=== PATIENT | male | born 1950 | race Two or more races ===

== ENCOUNTER 2021-06-18 19:18 | Inpatient (IN) | payer OTHER ==
[~2021-06-18] VITALS: Ht 182.9 cm; Wt 104.8 kg
[2021-06-18] MEDS ORDERED: DEXAMETHASONE 4 MG/ML, 1ML IVPush ONE (20:30)
[2021-06-18] MEDS ORDERED: DEXAMETHASONE 4 MG/ML, 1ML ONE (20:34)
[2021-06-18] MEDS: INSULIN LISPRO 100 UNITS/ML, PEN SQ-INSULIN SCH (21:00)
[2021-06-18] MEDS ORDERED: ONDANSETRON 2MG/ML, 2ML IVPush PRN (21:00)
[2021-06-18] MEDS ORDERED: morphine SULFATE 10 MG/ML, 1ML IVPush PRN (21:00)
[2021-06-18] MEDS ORDERED: KETOROLAC 30 MG/1 ML IV PRN (21:00)
[2021-06-18] MEDS ORDERED: POLYETHYLENE GLYCOL 17 GM PACKET PO PRN (21:00)
[2021-06-18] MEDS ORDERED: PHARMACY MAY ADJ FOR RENAL FX MC PRN (21:00)
[2021-06-18] MEDS ORDERED: MELATONIN 5 MG TABLET PO PRN (21:00)
[2021-06-18] MEDS ORDERED: LABETALOL 5MG/ML, 20ML IVPush PRN (21:00)
--- NOTE | 2021-06-18 22:01 | NUR ---
patient brought water per request
[2021-06-18] MEDS ORDERED: PLEASE ENTER ALLERGIES MC SCH (22:30)
[2021-06-18 22:44] LABS: ALBUMIN 2.5 g/dL (3.4-5.0); ANION GAP 7 mmol/L (5-15); CHLORIDE 107 mmol/L (98-107)
[2021-06-18 22:47] LABS: ALANINE AMINOTRANSFERASE 31 U/L (12-78); ALKALINE PHOSPHATASE 45 U/L (45-117); BILIRUBIN,TOTAL 1.2 mg/dL (0.2-1.0); CREATININE 0.66 mg/dL (0.7-1.3); TOTAL PROTEIN 6.8 g/dL (6.4-8.2)
[2021-06-18] MEDS ORDERED: REMDESIVIR 200 MG in SODIUM CHLORIDE 0.9% 250 ML IVPB ONE (23:00)
--- NOTE | 2021-06-18 23:07 | NUR ---
patients family member called with concerns that patient has nothing to eat yet. Spoke with family and notified them that patient has yet to voice a request for food to RN. Family frustrated with this information and stating that he had been asking RN for food for hours. Patient brought crackers, cereal, and cheese sticks from nourishment room per request. Patient has no other needs at this current moment
[2021-06-18 23:22] VITALS: BP 111/66
[2021-06-18] MEDS: FAMOTIDINE 20 MG TABLET PO SCH (23:46)
[2021-06-18] MEDS: ENOXAPARIN 40 MG/0.4 ML SQ SCH (23:46)
[2021-06-18] MEDS: DEXAMETHASONE 4 MG/ML, 1ML IVPush SCH (23:46)
[2021-06-19 01:28] VITALS: BP 117/64
[2021-06-19] MEDS: DEXAMETHASONE 4 MG/ML, 1ML IVPush SCH ×2 (05:16→11:05)
[2021-06-19 05:25] LABS: BASOPHILS % (AUTO) 0 % (0-1); EOSINOPHILS % (AUTO) 0 % (1-7); LYMPHOCYTES % (AUTO) 16 % (22-44); MEAN CORPUSCULAR HEMOGLOBIN 30.8 pg (27.5-34.5); MEAN CORPUSCULAR HGB CONC 34.6 g/dL (33.2-36.2); MEAN PLATELET VOLUME 9.2 fL (7.4-10.4); MONOCYTES % (AUTO) 8 % (2-9); NEUTROPHILS % (AUTO) 77 % (42-75); PLATELET COUNT 80 x10^3/uL (130-400); RED BLOOD COUNT 4.55 x10^6/uL (4.38-5.82); RED CELL DISTRIBUTION WIDTH 13.4 % (9.4-14.8)
[2021-06-19 05:40] LABS: ANION GAP 7 mmol/L (5-15); CALCIUM 8.4 mg/dL (8.5-10.1); CHLORIDE 108 mmol/L (98-107)
[2021-06-19 05:42] LABS: CREATININE 0.65 mg/dL (0.7-1.3)
[2021-06-19] MEDS ORDERED: TAMSULOSIN 0.4 MG CAP.ER.24H PO SCH (07:00)
[2021-06-19] MEDS: FAMOTIDINE 20 MG TABLET PO SCH ×2 (07:42→21:08)
[2021-06-19] MEDS: INSULIN LISPRO 100 UNITS/ML, PEN SQ-INSULIN SCH ×4 (07:50→21:12)
[2021-06-19 08:13] VITALS: BP 106/46
[2021-06-19 10:18] LABS: ALANINE AMINOTRANSFERASE 28 U/L (12-78); ALBUMIN 2.3 g/dL (3.4-5.0); ANION GAP 8 mmol/L (5-15); CALCIUM 8.4 mg/dL (8.5-10.1); CHLORIDE 107 mmol/L (98-107)
[2021-06-19 10:42] LABS: ALKALINE PHOSPHATASE 42 U/L (45-117); BILIRUBIN,TOTAL 0.9 mg/dL (0.2-1.0); CREATININE 0.69 mg/dL (0.7-1.3); TOTAL PROTEIN 6.4 g/dL (6.4-8.2)
[2021-06-19 13:23] VITALS: BP 112/69
[2021-06-19 20:07] VITALS: BP 100/61
[2021-06-19] MEDS: ENOXAPARIN 40 MG/0.4 ML SQ SCH (21:08)
[2021-06-19] MEDS: REMDESIVIR 100 MG in SODIUM CHLORIDE 0.9% 250 ML IVPB SCH (22:34)
[2021-06-20 01:12] VITALS: BP 81/41
[2021-06-20 05:44] LABS: BASOPHILS % (AUTO) 0 % (0-1); EOSINOPHILS % (AUTO) 0 % (1-7); LYMPHOCYTES % (AUTO) 11 % (22-44); MEAN CORPUSCULAR HEMOGLOBIN 30.9 pg (27.5-34.5); MEAN CORPUSCULAR HGB CONC 34.4 g/dL (33.2-36.2); MEAN PLATELET VOLUME 9.8 fL (7.4-10.4); MONOCYTES % (AUTO) 6 % (2-9); NEUTROPHILS % (AUTO) 83 % (42-75); PLATELET COUNT 86 x10^3/uL (130-400); RED BLOOD COUNT 4.43 x10^6/uL (4.38-5.82); RED CELL DISTRIBUTION WIDTH 13.5 % (9.4-14.8)
[2021-06-20 05:47] LABS: HCT (SEDRATE) 40.2 % (39.2-51.8)
[2021-06-20 05:57] LABS: CHLORIDE 109 mmol/L (98-107)
[2021-06-20 06:10] LABS: ALANINE AMINOTRANSFERASE 25 U/L (12-78); ALBUMIN 2.2 g/dL (3.4-5.0); ALKALINE PHOSPHATASE 40 U/L (45-117); ANION GAP 6 mmol/L (5-15); BILIRUBIN,TOTAL 0.8 mg/dL (0.2-1.0); CALCIUM 8.2 mg/dL (8.5-10.1)
[2021-06-20] MEDS: INSULIN LISPRO 100 UNITS/ML, PEN SQ-INSULIN SCH ×4 (07:00→20:05)
[2021-06-20] MEDS: FAMOTIDINE 20 MG TABLET PO SCH ×2 (07:14→20:06)
[2021-06-20] MEDS: DEXAMETHASONE 4 MG/ML, 1ML IVPush SCH (07:14)
[2021-06-20 07:53] VITALS: BP 100/59
[2021-06-20 13:53] VITALS: BP 114/70
[2021-06-20] MEDS: TAMSULOSIN 0.4 MG CAP.ER.24H PO SCH (20:06)
[2021-06-20] MEDS: ENOXAPARIN 40 MG/0.4 ML SQ SCH (20:06)
[2021-06-20 20:07] VITALS: BP 100/59
[2021-06-20] MEDS: REMDESIVIR 100 MG in SODIUM CHLORIDE 0.9% 250 ML IVPB SCH (22:46)
[2021-06-20 23:43] VITALS: BP 108/66
[2021-06-21 06:02] LABS: ALBUMIN 2.2 g/dL (3.4-5.0); ANION GAP 7 mmol/L (5-15); CALCIUM 8.3 mg/dL (8.5-10.1); CHLORIDE 107 mmol/L (98-107)
[2021-06-21 06:05] LABS: ALANINE AMINOTRANSFERASE 28 U/L (12-78); ALKALINE PHOSPHATASE 49 U/L (45-117); BILIRUBIN,TOTAL 0.9 mg/dL (0.2-1.0); CREATININE 0.59 mg/dL (0.7-1.3); TOTAL PROTEIN 6.1 g/dL (6.4-8.2)
[2021-06-21] MEDS: INSULIN LISPRO 100 UNITS/ML, PEN SQ-INSULIN SCH ×4 (07:00→21:36)
[2021-06-21] MEDS: FAMOTIDINE 20 MG TABLET PO SCH ×2 (07:17→20:39)
[2021-06-21] MEDS: TAMSULOSIN 0.4 MG CAP.ER.24H PO SCH (07:17)
[2021-06-21] MEDS: DEXAMETHASONE 4 MG/ML, 1ML IVPush SCH (07:18)
[2021-06-21 07:28] VITALS: BP 100/60
[2021-06-21 10:32] LABS: ALANINE AMINOTRANSFERASE 27 U/L (12-78); ALBUMIN 2.4 g/dL (3.4-5.0); ANION GAP 9 mmol/L (5-15); CALCIUM 8.3 mg/dL (8.5-10.1); CHLORIDE 104 mmol/L (98-107); CREATININE 0.67 mg/dL (0.7-1.3)
[2021-06-21 10:34] LABS: ALKALINE PHOSPHATASE 55 U/L (45-117); BILIRUBIN,TOTAL 1.2 mg/dL (0.2-1.0); TOTAL PROTEIN 6.1 g/dL (6.4-8.2)
[2021-06-21 13:01] VITALS: BP 115/71
[2021-06-21 19:41] VITALS: BP 120/71
[2021-06-21] MEDS: ENOXAPARIN 40 MG/0.4 ML SQ SCH (20:40)
[2021-06-21] MEDS: REMDESIVIR 100 MG in SODIUM CHLORIDE 0.9% 250 ML IVPB SCH (22:57)
[2021-06-21] MEDS: ACETAMINOPHEN 325 MG TABLET PO PRN (22:59)
[2021-06-22 01:10] VITALS: BP 124/80
[2021-06-22 05:37] LABS: ALANINE AMINOTRANSFERASE 26 U/L (12-78); ALBUMIN 2.2 g/dL (3.4-5.0); ANION GAP 6 mmol/L (5-15); CHLORIDE 106 mmol/L (98-107)
[2021-06-22 05:39] LABS: ALKALINE PHOSPHATASE 53 U/L (45-117); BILIRUBIN,TOTAL 1.2 mg/dL (0.2-1.0); TOTAL PROTEIN 5.9 g/dL (6.4-8.2)
[2021-06-22] MEDS: INSULIN LISPRO 100 UNITS/ML, PEN SQ-INSULIN SCH ×4 (07:00→20:59)
[2021-06-22] MEDS: FAMOTIDINE 20 MG TABLET PO SCH ×2 (07:51→20:59)
[2021-06-22] MEDS: DEXAMETHASONE 4 MG/ML, 1ML IVPush SCH (07:51)
[2021-06-22] MEDS: TAMSULOSIN 0.4 MG CAP.ER.24H PO SCH (07:51)
[2021-06-22 08:50] VITALS: BP 106/69
[2021-06-22 12:33] VITALS: BP 119/75
[2021-06-22 18:41] VITALS: BP 116/73
[2021-06-22] MEDS: ENOXAPARIN 40 MG/0.4 ML SQ SCH (20:59)
[2021-06-22] MEDS: REMDESIVIR 100 MG in SODIUM CHLORIDE 0.9% 250 ML IVPB SCH (23:32)
[2021-06-23 02:00] VITALS: BP 116/73
[2021-06-23 05:58] VITALS: BP 138/68
[2021-06-23] MEDS: INSULIN LISPRO 100 UNITS/ML, PEN SQ-INSULIN SCH ×4 (07:00→20:43)
[2021-06-23] MEDS: FAMOTIDINE 20 MG TABLET PO SCH ×2 (08:05→20:29)
[2021-06-23] MEDS: TAMSULOSIN 0.4 MG CAP.ER.24H PO SCH (08:05)
[2021-06-23] MEDS: DEXAMETHASONE 4 MG/ML, 1ML IVPush SCH (08:06)
[2021-06-23 08:19] VITALS: BP 107/69
[2021-06-23] MEDS ORDERED: OMNIPAQUE 350 MG/ML, 100ML BOTTLE ONE (08:34)
[2021-06-23] MEDS ORDERED: ENOXAPARIN 60 MG/0.6 ML SQ SCH (09:00)
[2021-06-23 09:20] LABS: ALANINE AMINOTRANSFERASE 29 U/L (12-78); ALBUMIN 2.4 g/dL (3.4-5.0); ANION GAP 8 mmol/L (5-15); CALCIUM 8.5 mg/dL (8.5-10.1); CHLORIDE 104 mmol/L (98-107); CREATININE 0.49 mg/dL (0.7-1.3)
[2021-06-23 09:23] LABS: ALKALINE PHOSPHATASE 68 U/L (45-117); BILIRUBIN,TOTAL 1.4 mg/dL (0.2-1.0); TOTAL PROTEIN 6.6 g/dL (6.4-8.2)
[2021-06-23 09:31] LABS: BASOPHILS % (AUTO) 0 % (0-1); EOSINOPHILS % (AUTO) 2 % (1-7); LYMPHOCYTES % (AUTO) 8 % (22-44); MEAN CORPUSCULAR HEMOGLOBIN 30.4 pg (27.5-34.5); MEAN CORPUSCULAR HGB CONC 34.3 g/dL (33.2-36.2); MEAN PLATELET VOLUME 9.7 fL (7.4-10.4); MONOCYTES % (AUTO) 5 % (2-9); NEUTROPHILS % (AUTO) 85 % (42-75); PLATELET COUNT 85 x10^3/uL (130-400); RED BLOOD COUNT 4.98 x10^6/uL (4.38-5.82); RED CELL DISTRIBUTION WIDTH 13.8 % (9.4-14.8)
[2021-06-23] MEDS ORDERED: ENOXAPARIN 40 MG/0.4 ML SQ ONE (10:30)
[2021-06-23 14:00] VITALS: BP 104/68
[2021-06-23 19:48] VITALS: BP 113/71
[2021-06-23] MEDS: ENOXAPARIN 100 MG/ML SQ SCH (20:30)
[2021-06-23] MEDS: ACETAMINOPHEN 325 MG TABLET PO PRN (20:43)
[2021-06-24 01:31] VITALS: BP 114/65
[2021-06-24] MEDS: INSULIN LISPRO 100 UNITS/ML, PEN SQ-INSULIN SCH ×4 (07:00→21:03)
[2021-06-24 07:33] VITALS: BP 103/69
[2021-06-24] MEDS: CHOLECALCIFEROL 1,000 UNIT TABLET PO SCH (08:16)
[2021-06-24] MEDS: ASCORBIC ACID 500 MG TABLET PO SCH ×2 (08:16→16:12)
[2021-06-24] MEDS: FAMOTIDINE 20 MG TABLET PO SCH ×2 (08:17→21:02)
[2021-06-24] MEDS: THIAMINE 100MG TABLET PO SCH (08:17)
[2021-06-24] MEDS: TAMSULOSIN 0.4 MG CAP.ER.24H PO SCH (08:17)
[2021-06-24] MEDS: ZINC SULFATE 220 MG CAPSULE PO SCH (08:17)
[2021-06-24] MEDS: ENOXAPARIN 100 MG/ML SQ SCH ×2 (08:18→21:02)
[2021-06-24] MEDS: DEXAMETHASONE 4 MG/ML, 1ML IVPush SCH (08:18)
[2021-06-24] MEDS ORDERED: POTASSIUM CHLORIDE 20 MEQ TAB.ER.PRT PO ONE (09:00)
[2021-06-24] MEDS: FUROSEMIDE 40 MG/4 ML IV SCH ×2 (10:18→17:05)
[2021-06-24 16:08] VITALS: BP 101/68
[2021-06-24 20:05] VITALS: BP 97/61
[2021-06-24] MEDS: ACETAMINOPHEN 325 MG TABLET PO PRN (21:28)
[2021-06-25 00:10] VITALS: BP 105/68
[2021-06-25 06:22] LABS: ANION GAP 7 mmol/L (5-15); CALCIUM 8.3 mg/dL (8.5-10.1); CHLORIDE 103 mmol/L (98-107); CREATININE 0.53 mg/dL (0.7-1.3)
[2021-06-25] MEDS: INSULIN LISPRO 100 UNITS/ML, PEN SQ-INSULIN SCH ×4 (08:46→21:31)
[2021-06-25] MEDS: INSULIN GLARGINE 100 UNITS/ML, PEN SQ-INSULIN SCH ×2 (09:00→21:31)
[2021-06-25] MEDS: DEXAMETHASONE 4 MG/ML, 1ML IVPush SCH (09:12)
[2021-06-25] MEDS: FUROSEMIDE 40 MG/4 ML IV SCH ×2 (09:12→17:15)
[2021-06-25] MEDS: ASCORBIC ACID 500 MG TABLET PO SCH ×2 (09:12→17:15)
[2021-06-25] MEDS: THIAMINE 100MG TABLET PO SCH (09:12)
[2021-06-25] MEDS: CHOLECALCIFEROL 1,000 UNIT TABLET PO SCH (09:12)
[2021-06-25] MEDS: ZINC SULFATE 220 MG CAPSULE PO SCH (09:12)
[2021-06-25] MEDS: FAMOTIDINE 20 MG TABLET PO SCH ×2 (09:12→21:32)
[2021-06-25] MEDS: TAMSULOSIN 0.4 MG CAP.ER.24H PO SCH (09:12)
[2021-06-25] MEDS: ENOXAPARIN 100 MG/ML SQ SCH ×2 (09:13→21:31)
[2021-06-25 09:18] VITALS: BP 98/61
[2021-06-25] MEDS: SODIUM CHLORIDE NASAL SPRAY 45ML BOTTLE NAS SCH ×3 (09:30→21:32)
[2021-06-25] MEDS: DOXYCYCLINE 100MG TABLET PO SCH ×2 (11:04→21:32)
[2021-06-25] MEDS: FLUTICASONE NASAL SPRAY 16GM NAS SCH (11:04)
[2021-06-25] MEDS: CEFTRIAXONE 2 GM in DEXTROSE 5% 50 ML IVPB SCH (11:05)
[2021-06-25 13:29] VITALS: BP 101/64
[2021-06-25 20:09] VITALS: BP 109/72
[2021-06-26 02:13] VITALS: BP 110/72
[2021-06-26] MEDS: SODIUM CHLORIDE NASAL SPRAY 45ML BOTTLE NAS SCH ×4 (03:03→21:47)
[2021-06-26] MEDS: INSULIN LISPRO 100 UNITS/ML, PEN SQ-INSULIN SCH ×4 (07:00→21:46)
[2021-06-26 07:34] VITALS: BP 103/66
[2021-06-26] MEDS: FUROSEMIDE 40 MG/4 ML IV SCH ×2 (07:41→16:27)
[2021-06-26] MEDS: ASCORBIC ACID 500 MG TABLET PO SCH ×2 (07:41→16:27)
[2021-06-26] MEDS: FAMOTIDINE 20 MG TABLET PO SCH ×2 (09:13→21:40)
[2021-06-26] MEDS: DOXYCYCLINE 100MG TABLET PO SCH ×2 (09:13→21:40)
[2021-06-26] MEDS: TAMSULOSIN 0.4 MG CAP.ER.24H PO SCH (09:13)
[2021-06-26] MEDS: THIAMINE 100MG TABLET PO SCH (09:13)
[2021-06-26] MEDS: ZINC SULFATE 220 MG CAPSULE PO SCH (09:13)
[2021-06-26] MEDS: CHOLECALCIFEROL 1,000 UNIT TABLET PO SCH (09:13)
[2021-06-26] MEDS: DEXAMETHASONE 4 MG/ML, 1ML IVPush SCH (09:14)
[2021-06-26] MEDS: ENOXAPARIN 100 MG/ML SQ SCH ×2 (09:15→21:40)
[2021-06-26] MEDS: INSULIN GLARGINE 100 UNITS/ML, PEN SQ-INSULIN SCH ×2 (09:15→21:47)
[2021-06-26] MEDS: FLUTICASONE NASAL SPRAY 16GM NAS SCH (09:16)
[2021-06-26] MEDS: CEFTRIAXONE 2 GM in DEXTROSE 5% 50 ML IVPB SCH (10:22)
[2021-06-26 14:55] VITALS: BP 100/64
[2021-06-26 19:49] VITALS: BP 104/65
[2021-06-27 00:27] VITALS: BP 114/62
[2021-06-27] MEDS: SODIUM CHLORIDE NASAL SPRAY 45ML BOTTLE NAS SCH ×4 (03:22→21:29)
[2021-06-27 05:36] LABS: CHLORIDE 100 mmol/L (98-107)
[2021-06-27 05:47] LABS: ANION GAP 7 mmol/L (5-15); CALCIUM 8.4 mg/dL (8.5-10.1); CREATININE 0.51 mg/dL (0.7-1.3)
[2021-06-27 07:00] VITALS: BP 99/60
[2021-06-27] MEDS: INSULIN LISPRO 100 UNITS/ML, PEN SQ-INSULIN SCH ×4 (07:00→21:29)
[2021-06-27] MEDS: DEXAMETHASONE 4 MG/ML, 1ML IVPush SCH (07:50)
[2021-06-27] MEDS: ASCORBIC ACID 500 MG TABLET PO SCH ×2 (07:51→16:42)
[2021-06-27] MEDS: THIAMINE 100MG TABLET PO SCH (07:51)
[2021-06-27] MEDS: DOXYCYCLINE 100MG TABLET PO SCH ×2 (07:51→21:26)
[2021-06-27] MEDS: ZINC SULFATE 220 MG CAPSULE PO SCH (07:51)
[2021-06-27] MEDS: FUROSEMIDE 40 MG/4 ML IV SCH ×2 (07:51→16:42)
[2021-06-27] MEDS: TAMSULOSIN 0.4 MG CAP.ER.24H PO SCH (07:51)
[2021-06-27] MEDS: CHOLECALCIFEROL 1,000 UNIT TABLET PO SCH (07:51)
[2021-06-27] MEDS: FAMOTIDINE 20 MG TABLET PO SCH ×2 (07:51→21:26)
[2021-06-27] MEDS: ENOXAPARIN 100 MG/ML SQ SCH ×2 (07:51→21:26)
[2021-06-27] MEDS: FLUTICASONE NASAL SPRAY 16GM NAS SCH (07:52)
[2021-06-27] MEDS: INSULIN GLARGINE 100 UNITS/ML, PEN SQ-INSULIN SCH ×2 (07:52→21:28)
[2021-06-27 08:04] VITALS: BP 106/69
[2021-06-27] MEDS: CEFTRIAXONE 2 GM in DEXTROSE 5% 50 ML IVPB SCH (11:20)
[2021-06-27 14:49] VITALS: BP 96/60
[2021-06-27 19:45] VITALS: BP 104/60
[2021-06-28 00:52] VITALS: BP 105/66
[2021-06-28] MEDS: SODIUM CHLORIDE NASAL SPRAY 45ML BOTTLE NAS SCH ×4 (03:30→21:30)
[2021-06-28 07:25] VITALS: BP 101/65
[2021-06-28] MEDS: INSULIN LISPRO 100 UNITS/ML, PEN SQ-INSULIN SCH ×4 (07:37→22:33)
[2021-06-28] MEDS: FAMOTIDINE 20 MG TABLET PO SCH ×2 (07:38→22:04)
[2021-06-28] MEDS: ZINC SULFATE 220 MG CAPSULE PO SCH (07:38)
[2021-06-28] MEDS: FUROSEMIDE 40 MG/4 ML IV SCH ×2 (07:38→16:40)
[2021-06-28] MEDS: ASCORBIC ACID 500 MG TABLET PO SCH ×2 (07:38→16:40)
[2021-06-28] MEDS: THIAMINE 100MG TABLET PO SCH (07:38)
[2021-06-28] MEDS: TAMSULOSIN 0.4 MG CAP.ER.24H PO SCH (07:38)
[2021-06-28] MEDS: POTASSIUM CHLORIDE 20 MEQ TAB.ER.PRT PO SCH (07:38)
[2021-06-28] MEDS: DOXYCYCLINE 100MG TABLET PO SCH ×2 (07:38→22:04)
[2021-06-28] MEDS: FLUTICASONE NASAL SPRAY 16GM NAS SCH (07:39)
[2021-06-28] MEDS: CHOLECALCIFEROL 1,000 UNIT TABLET PO SCH (07:39)
[2021-06-28] MEDS: DEXAMETHASONE 4 MG/ML, 1ML IVPush SCH (07:39)
[2021-06-28] MEDS: ENOXAPARIN 100 MG/ML SQ SCH ×2 (07:39→22:04)
[2021-06-28] MEDS: INSULIN GLARGINE 100 UNITS/ML, PEN SQ-INSULIN SCH ×2 (07:40→22:10)
[2021-06-28] MEDS: CEFTRIAXONE 2 GM in DEXTROSE 5% 50 ML IVPB SCH (10:08)
[2021-06-28 12:14] VITALS: BP 96/60
[2021-06-28 20:27] VITALS: BP 101/67
[2021-06-29 00:31] VITALS: BP 97/62
[2021-06-29] MEDS: SODIUM CHLORIDE NASAL SPRAY 45ML BOTTLE NAS SCH ×4 (03:30→21:26)
[2021-06-29 06:24] LABS: BASOPHILS % (AUTO) 0 % (0-1); EOSINOPHILS % (AUTO) 0 % (1-7); LYMPHOCYTES % (AUTO) 10 % (22-44); MEAN CORPUSCULAR HEMOGLOBIN 30.5 pg (27.5-34.5); MEAN CORPUSCULAR HGB CONC 34.1 g/dL (33.2-36.2); MEAN PLATELET VOLUME 9.5 fL (7.4-10.4); MONOCYTES % (AUTO) 7 % (2-9); NEUTROPHILS % (AUTO) 82 % (42-75); PLATELET COUNT 66 x10^3/uL (130-400); RED BLOOD COUNT 4.73 x10^6/uL (4.38-5.82)
[2021-06-29 06:32] LABS: CALCIUM 8.4 mg/dL (8.5-10.1); CHLORIDE 100 mmol/L (98-107)
[2021-06-29 06:34] LABS: CREATININE 0.59 mg/dL (0.7-1.3)
[2021-06-29 06:54] LABS: ANION GAP 7 mmol/L (5-15)
[2021-06-29] MEDS: INSULIN LISPRO 100 UNITS/ML, PEN SQ-INSULIN SCH ×4 (07:00→21:26)
[2021-06-29] MEDS: DEXAMETHASONE 4 MG/ML, 1ML IVPush SCH (08:03)
[2021-06-29] MEDS: CHOLECALCIFEROL 1,000 UNIT TABLET PO SCH (08:03)
[2021-06-29] MEDS: ASCORBIC ACID 500 MG TABLET PO SCH ×2 (08:04→17:42)
[2021-06-29] MEDS: POTASSIUM CHLORIDE 20 MEQ TAB.ER.PRT PO SCH (08:04)
[2021-06-29] MEDS: DOXYCYCLINE 100MG TABLET PO SCH ×2 (08:04→21:18)
[2021-06-29] MEDS: FAMOTIDINE 20 MG TABLET PO SCH ×2 (08:04→21:18)
[2021-06-29] MEDS: ZINC SULFATE 220 MG CAPSULE PO SCH (08:04)
[2021-06-29] MEDS: FLUTICASONE NASAL SPRAY 16GM NAS SCH (08:04)
[2021-06-29] MEDS: ENOXAPARIN 100 MG/ML SQ SCH ×2 (08:04→21:18)
[2021-06-29] MEDS: THIAMINE 100MG TABLET PO SCH (08:04)
[2021-06-29] MEDS: TAMSULOSIN 0.4 MG CAP.ER.24H PO SCH (08:04)
[2021-06-29] MEDS: FUROSEMIDE 40 MG/4 ML IV SCH ×2 (08:22→17:42)
[2021-06-29] MEDS: CEFTRIAXONE 2 GM in DEXTROSE 5% 50 ML IVPB SCH (10:52)
[2021-06-29] MEDS: INSULIN GLARGINE 100 UNITS/ML, PEN SQ-INSULIN SCH ×2 (10:52→21:23)
[2021-06-29 17:48] VITALS: BP 113/83
[2021-06-29 19:50] VITALS: BP 126/74
[2021-06-30 00:47] VITALS: BP 112/79
[2021-06-30] MEDS: SODIUM CHLORIDE NASAL SPRAY 45ML BOTTLE NAS SCH ×4 (03:30→21:30)
[2021-06-30 05:57] LABS: BASOPHILS % (AUTO) 0 % (0-1); EOSINOPHILS % (AUTO) 0 % (1-7); LYMPHOCYTES % (AUTO) 9 % (22-44); MEAN CORPUSCULAR HEMOGLOBIN 30.5 pg (27.5-34.5); MEAN PLATELET VOLUME 9.6 fL (7.4-10.4); MONOCYTES % (AUTO) 6 % (2-9); NEUTROPHILS % (AUTO) 84 % (42-75); PLATELET COUNT 60 x10^3/uL (130-400); RED BLOOD COUNT 4.89 x10^6/uL (4.38-5.82); RED CELL DISTRIBUTION WIDTH 13.9 % (9.4-14.8)
[2021-06-30] MEDS: INSULIN LISPRO 100 UNITS/ML, PEN SQ-INSULIN SCH ×4 (07:00→20:49)
[2021-06-30] MEDS: ASCORBIC ACID 500 MG TABLET PO SCH (07:30)
[2021-06-30] MEDS: FUROSEMIDE 40 MG/4 ML IV SCH ×2 (07:30→16:16)
[2021-06-30] MEDS: DEXAMETHASONE 4 MG/ML, 1ML IVPush SCH (07:30)
[2021-06-30] MEDS: THIAMINE 100MG TABLET PO SCH (07:31)
[2021-06-30] MEDS: CHOLECALCIFEROL 1,000 UNIT TABLET PO SCH (07:31)
[2021-06-30] MEDS: TAMSULOSIN 0.4 MG CAP.ER.24H PO SCH (07:31)
[2021-06-30] MEDS: FLUTICASONE NASAL SPRAY 16GM NAS SCH (07:31)
[2021-06-30] MEDS: POTASSIUM CHLORIDE 20 MEQ TAB.ER.PRT PO SCH (07:31)
[2021-06-30] MEDS: DOXYCYCLINE 100MG TABLET PO SCH (07:31)
[2021-06-30] MEDS: ZINC SULFATE 220 MG CAPSULE PO SCH (07:31)
[2021-06-30] MEDS: ENOXAPARIN 100 MG/ML SQ SCH ×2 (07:32→20:28)
[2021-06-30 07:39] VITALS: BP 114/73
[2021-06-30 16:17] VITALS: BP 104/66
[2021-06-30 19:43] VITALS: BP 98/63
[2021-07-01 00:12] VITALS: BP 98/62
[2021-07-01] MEDS: SODIUM CHLORIDE NASAL SPRAY 45ML BOTTLE NAS SCH ×4 (03:30→20:26)
[2021-07-01 06:31] LABS: BASOPHILS % (AUTO) 0 % (0-1); EOSINOPHILS % (AUTO) 1 % (1-7); LYMPHOCYTES % (AUTO) 12 % (22-44); MEAN CORPUSCULAR HGB CONC 33.8 g/dL (33.2-36.2); MEAN PLATELET VOLUME 9.7 fL (7.4-10.4); MONOCYTES % (AUTO) 6 % (2-9); NEUTROPHILS % (AUTO) 81 % (42-75); PLATELET COUNT 56 x10^3/uL (130-400); RED BLOOD COUNT 4.74 x10^6/uL (4.38-5.82); RED CELL DISTRIBUTION WIDTH 14.1 % (9.4-14.8)
[2021-07-01 06:37] LABS: ANION GAP 6 mmol/L (5-15); CALCIUM 8.5 mg/dL (8.5-10.1); CHLORIDE 103 mmol/L (98-107); CREATININE 0.57 mg/dL (0.7-1.3)
[2021-07-01] MEDS: INSULIN LISPRO 100 UNITS/ML, PEN SQ-INSULIN SCH ×4 (07:00→20:23)
[2021-07-01] MEDS: FLUTICASONE NASAL SPRAY 16GM NAS SCH (07:58)
[2021-07-01] MEDS: POTASSIUM CHLORIDE 20 MEQ TAB.ER.PRT PO SCH (07:58)
[2021-07-01] MEDS: TAMSULOSIN 0.4 MG CAP.ER.24H PO SCH (07:58)
[2021-07-01] MEDS: ENOXAPARIN 100 MG/ML SQ SCH ×2 (07:58→20:23)
[2021-07-01] MEDS: FUROSEMIDE 40 MG/4 ML IV SCH ×2 (07:58→17:02)
[2021-07-01 08:55] VITALS: BP 97/61
[2021-07-01 12:03] VITALS: BP 96/64
[2021-07-01 20:43] VITALS: BP 93/62
[2021-07-02 00:04] VITALS: BP 91/58
[2021-07-02] MEDS: SODIUM CHLORIDE NASAL SPRAY 45ML BOTTLE NAS SCH ×3 (03:33→15:30)
[2021-07-02] MEDS: INSULIN LISPRO 100 UNITS/ML, PEN SQ-INSULIN SCH ×3 (07:00→16:00)
[2021-07-02 07:41] VITALS: BP 96/63
[2021-07-02 07:50] LABS: BASOPHILS % (AUTO) 0 % (0-1); EOSINOPHILS % (AUTO) 2 % (1-7); LYMPHOCYTES % (AUTO) 20 % (22-44); MEAN CORPUSCULAR HEMOGLOBIN 30.3 pg (27.5-34.5); MEAN CORPUSCULAR HGB CONC 33.2 g/dL (33.2-36.2); MEAN PLATELET VOLUME 9.3 fL (7.4-10.4); MONOCYTES % (AUTO) 9 % (2-9); NEUTROPHILS % (AUTO) 69 % (42-75); PLATELET COUNT 55 x10^3/uL (130-400); RED CELL DISTRIBUTION WIDTH 14.5 % (9.4-14.8)
[2021-07-02 07:55] LABS: ALBUMIN 2.3 g/dL (3.4-5.0); ANION GAP 4 mmol/L (5-15); CHLORIDE 105 mmol/L (98-107)
[2021-07-02 07:56] LABS: CREATININE 0.59 mg/dL (0.7-1.3)
[2021-07-02] MEDS: FUROSEMIDE 40 MG/4 ML IV SCH ×2 (08:28→17:00)
[2021-07-02] MEDS: TAMSULOSIN 0.4 MG CAP.ER.24H PO SCH (08:28)
[2021-07-02] MEDS: ENOXAPARIN 100 MG/ML SQ SCH (08:29)
[2021-07-02] MEDS: FLUTICASONE NASAL SPRAY 16GM NAS SCH (08:29)
[2021-07-02] MEDS: POTASSIUM CHLORIDE 20 MEQ TAB.ER.PRT PO SCH (08:29)
[2021-07-02] MEDS ORDERED: APIX2.5T PO (12:37)
[2021-07-02] MEDS ORDERED: TAMS-11 PO (12:37)
[2021-07-02] MEDS ORDERED: INSU100I11 SQ-INSULIN (12:37)
== END 2021-07-02 18:10 | disposition home or self-care (01) | DRG 177 ==
LOC: ED 21:45 → EDIP 22:09 → 3N 23:13
PROVIDERS: ADMIT Internal Medicine; ATTEND Family Medicine
PROC: XW033E5 Introduction of Remdesivir Anti-infective into Peripheral Vein, Percutaneous Approach, New Technology Group 5 (ICD-10-PCS; 2021-06-18)
PROC: 5A0935A Assistance with Respiratory Ventilation, Less than 24 Consecutive Hours, High Flow/Velocity Cannula (ICD-10-PCS; principal; 2021-06-25)
DX: U07.1 COVID-19 (principal); J12.82 Pneumonia due to coronavirus disease 2019; J96.21 Acute and chronic respiratory failure with hypoxia; I26.99 Other pulmonary embolism without acute cor pulmonale; E66.01 Morbid (severe) obesity due to excess calories; F19.10 Other psychoactive substance abuse, uncomplicated; E11.65 Type 2 diabetes mellitus with hyperglycemia; D69.6 Thrombocytopenia, unspecified; N40.0 Benign prostatic hyperplasia without lower urinary tract symptoms; Z68.28 Body mass index [BMI] 28.0-28.9, adult; Z79.4 Long term (current) use of insulin; Z87.891 Personal history of nicotine dependence
CPT/HCPCS: 36415; 71045; 71275; 76705; 80048; 80053; 80069; 82962; 83615; 83735; 84145; 85025; 85379; 85651; 86140; 93005; 96372; 96374; 96375; 99285; G0378; J0696; J1100; J1650; J1940; Q9967; U0005; J1815; J7050; U0003